=== PATIENT | male | born 1995 | race Caucasian/White ===

== ENCOUNTER 2018-06-25 12:57 | Inpatient (IN) | payer OTHER, MEDICAID ==
[2018-06-25] MEDS: SOD CHLORIDE 0.9% 1,000 ML IV ×2 (15:00→15:47)
[2018-06-25 15:02] LABS: ADD MAN DIFF? NO
[2018-06-25] MEDS: ONDANSETRON 4 MG INJ IV (15:04)
[2018-06-25] MEDS: LORAZEPAM 2 MG INJ IV (15:05)
[2018-06-25 15:14] LABS: ABNORMAL IP MESSAGE 1; BASOPHIL # 0.1 10^3/ul (0.0-0.1); BASOPHILS % 0.2 % (0.0-2.0); HEMATOCRIT 52.9 % (42.0-52.0); LYMPHOCYTES # 1.8 10^3/ul (0.8-2.9); LYMPHOCYTES % 8.9 % (15.0-51.0); MEAN CORPUSCULAR HEMOGLOBIN 30.4 pg (29.0-33.0); MEAN CORPUSCULAR HGB CONC 35.9 g/dl (32.0-37.0); MEAN CORPUSCULAR VOLUME 84.5 fl (82.0-101.0); MEAN PLATELET VOLUME 9.5 fl (7.4-10.4); NEUTROPHIL # 16.2 10^3/ul (1.6-7.5); NEUTROPHILS % 80.4 % (39.0-77.0); PLATELET COUNT 365 10^3/UL (140-415); POSITIVE DIFF @See below; RED BLOOD COUNT 6.26 10^6/ul (4.70-6.10); RED CELL DISTRIBUTION WIDTH 11.9 % (11.5-14.5)
[2018-06-25 15:14] LABS: WHITE BLOOD COUNT 20.2 10^3/ul (4.8-10.8)
[2018-06-25 15:39] LABS: ALANINE AMINOTRANSFERASE 27 IU/L (13-69); ALBUMIN 5.5 g/dl (3.3-4.9); ALBUMIN/GLOBULIN RATIO 1.27; ALKALINE PHOSPHATASE 89 IU/L (42-121); ANION GAP 24 (8-16); ASPARTATE AMINO TRANSFERASE 57 IU/L (15-46); BILIRUBIN,INDIRECT 1.7 mg/dl (0-1.1); BILIRUBIN,TOTAL 1.7 mg/dl (0.2-1.3); BLOOD UREA NITROGEN 25 mg/dl (7-20); CARBON DIOXIDE 32 mmol/L (21-31); CHLORIDE 77 mmol/L (97-110); CREATININE 1.27 mg/dl (0.61-1.24); GLUCOSE 130 mg/dl (70-220); LIPASE 54 U/L (23-300); POTASSIUM 3.5 mmol/L (3.5-5.1); SODIUM 129 mmol/L (135-144); TOTAL PROTEIN 9.8 g/dl (6.1-8.1)
[2018-06-25] MEDS ORDERED: SOD CHLORIDE 0.9% 1,000 ML IV ×2 (18:23→18:33)
[2018-06-25] MEDS ORDERED: ONDANSETRON 4 MG INJ IV ×2 (18:30→19:00)
[2018-06-25] MEDS ORDERED: NACL 0.9% 3 ML SYG IV (18:30)
[2018-06-25] MEDS ORDERED: MAGNESIUM HYDROXIDE 30ML CUP PO (18:30)
[2018-06-25] MEDS ORDERED: LORAZEPAM 2 MG INJ IV ×2 (18:30→19:30)
[2018-06-25] MEDS ORDERED: CHLORDIAZEPOXIDE 25 MG CAP PO (18:30)
[2018-06-25] MEDS ORDERED: DOCUSATE SODIUM 100 MG CAP PO (18:30)
[2018-06-25] MEDS ORDERED: ACETAMINOPHEN 325 MG TAB PO (19:00)
[2018-06-25] MEDS: CHLORDIAZEPOXIDE 25 MG CAP PO (20:56)
[2018-06-25] MEDS: MULTIVITAMINS IV (21:16)
[2018-06-25] MEDS: THIAMINE IV (21:16)
[2018-06-25] MEDS: FOLIC ACID IV (21:16)
[2018-06-25] MEDS: SOD CHLORIDE IV (21:16)
[2018-06-25] MEDS: ZOLPIDEM 5 MG TAB PO (23:58)
[2018-06-26] MEDS: CHLORDIAZEPOXIDE 25 MG CAP PO ×4 (00:46→17:49)
[2018-06-26] MEDS: HYDROCODONE/APAP (10/325) TAB PO ×2 (01:19→16:18)
[2018-06-26] MEDS: DICYCLOMINE 10 MG CAP PO ×3 (02:06→23:08)
[2018-06-26 05:52] LABS: ADD MAN DIFF? NO
[2018-06-26 06:03] LABS: WHITE BLOOD COUNT 12.7 10^3/ul (4.8-10.8)
[2018-06-26 06:03] LABS: ABNORMAL IP MESSAGE 1; BASOPHIL # 0.1 10^3/ul (0.0-0.1); BASOPHILS % 0.5 % (0.0-2.0); EOSINOPHILS # 0.1 10^3/ul (0.0-0.5); EOSINOPHILS % 0.7 % (0.0-7.0); HEMATOCRIT 43.8 % (42.0-52.0); HEMOGLOBIN 15.3 g/dl (14.0-18.0); LYMPHOCYTES % 31.7 % (15.0-51.0); MEAN CORPUSCULAR HEMOGLOBIN 30.8 pg (29.0-33.0); MEAN CORPUSCULAR HGB CONC 34.9 g/dl (32.0-37.0); MEAN CORPUSCULAR VOLUME 88.3 fl (82.0-101.0); MEAN PLATELET VOLUME 9.8 fl (7.4-10.4); MONOCYTE # 1.6 10^3/ul (0.3-0.9); MONOCYTES % 12.7 % (0.0-11.0); NEUTROPHIL # 6.8 10^3/ul (1.6-7.5); NEUTROPHILS % 53.8 % (39.0-77.0); PLATELET COUNT 275 10^3/UL (140-415); POSITIVE DIFF @See below; RED BLOOD COUNT 4.96 10^6/ul (4.70-6.10); RED CELL DISTRIBUTION WIDTH 12.3 % (11.5-14.5)
[2018-06-26] MEDS: PANTOPRAZOLE 40 MG INJ IV (06:27)
[2018-06-26 06:34] LABS: ALANINE AMINOTRANSFERASE 33 IU/L (13-69); ALBUMIN 4.1 g/dl (3.3-4.9); ALBUMIN/GLOBULIN RATIO 1.51; ALKALINE PHOSPHATASE 56 IU/L (42-121); ANION GAP 13 (8-16); ASPARTATE AMINO TRANSFERASE 59 IU/L (15-46); BILIRUBIN,INDIRECT 2.1 mg/dl (0-1.1); BILIRUBIN,TOTAL 2.1 mg/dl (0.2-1.3); BLOOD UREA NITROGEN 16 mg/dl (7-20); CARBON DIOXIDE 34 mmol/L (21-31); CHLORIDE 89 mmol/L (97-110); CREATININE 0.87 mg/dl (0.61-1.24); GLUCOSE 98 mg/dl (70-220); POTASSIUM 3.1 mmol/L (3.5-5.1); SODIUM 133 mmol/L (135-144); TOTAL PROTEIN 6.8 g/dl (6.1-8.1)
[2018-06-26] MEDS: SOD CHLORIDE 0.9% 1,000 ML IV ×2 (09:55→19:00)
[2018-06-26] MEDS: POTASSIUM CHLORIDE (SR) 20 MEQ TAB PO ×2 (09:55→12:47)
[2018-06-26] MEDS: BUSPIRONE 5 MG TAB PO ×2 (13:02→21:13)
[2018-06-26] MEDS: ACETAMINOPHEN 325 MG TAB PO (17:22)
[2018-06-26] MEDS: MULTIVITAMINS IV (19:45)
[2018-06-26] MEDS: GUAIFENESIN/CODEINE 5ML CUP PO (19:45)
[2018-06-26] MEDS: SOD CHLORIDE IV (19:45)
[2018-06-26] MEDS: THIAMINE IV (19:45)
[2018-06-26] MEDS: FOLIC ACID IV (19:45)
[2018-06-27] MEDS: CHLORDIAZEPOXIDE 25 MG CAP PO ×5 (00:10→23:37)
[2018-06-27] MEDS: ZOLPIDEM 5 MG TAB PO (00:10)
[2018-06-27] MEDS: HYDROCODONE/APAP (10/325) TAB PO ×3 (00:11→12:30)
[2018-06-27] MEDS: PANTOPRAZOLE 40 MG INJ IV (05:31)
[2018-06-27] MEDS: SOD CHLORIDE 0.9% 1,000 ML IV (05:35)
[2018-06-27] MEDS: BUSPIRONE 5 MG TAB PO ×2 (08:06→21:51)
[2018-06-27 12:10] LABS: ALANINE AMINOTRANSFERASE 25 IU/L (13-69); ALBUMIN 3.6 g/dl (3.3-4.9); ALBUMIN/GLOBULIN RATIO 1.44; ALKALINE PHOSPHATASE 58 IU/L (42-121); ANION GAP 12 (8-16); ASPARTATE AMINO TRANSFERASE 45 IU/L (15-46); BILIRUBIN,INDIRECT 0.9 mg/dl (0-1.1); BILIRUBIN,TOTAL 0.9 mg/dl (0.2-1.3); BLOOD UREA NITROGEN 14 mg/dl (7-20); CALCIUM 8.7 mg/dl (8.4-10.2); CARBON DIOXIDE 28 mmol/L (21-31); CHLORIDE 99 mmol/L (97-110); CREATININE 0.73 mg/dl (0.61-1.24); GLUCOSE 96 mg/dl (70-220); POTASSIUM 3.6 mmol/L (3.5-5.1); SODIUM 135 mmol/L (135-144); TOTAL PROTEIN 6.1 g/dl (6.1-8.1)
[2018-06-27] MEDS: GUAIFENESIN/CODEINE 5ML CUP PO (12:30)
[2018-06-27] MEDS: POTASSIUM CHLORIDE (SR) 20 MEQ TAB PO (15:26)
[2018-06-27] MEDS: HYDROCODONE/APAP (5/325) TAB PO ×2 (15:32→21:51)
[2018-06-27] MEDS: IOHEXOL 300MG/ML 150 ML BTL (21:56)
[2018-06-27] MEDS: SOD CHLORIDE 0.9% 100 ML (21:56)
[2018-06-27] MEDS: DICYCLOMINE 10 MG CAP PO (22:54)
[2018-06-27] MEDS: THIAMINE IV (23:37)
[2018-06-27] MEDS: SOD CHLORIDE IV (23:37)
[2018-06-27] MEDS: FOLIC ACID IV (23:37)
[2018-06-27] MEDS: MULTIVITAMINS IV (23:37)
[2018-06-28] MEDS: ZOLPIDEM 5 MG TAB PO ×2 (00:55→03:31)
[2018-06-28] MEDS: GUAIFENESIN/CODEINE 5ML CUP PO ×2 (00:55→08:44)
[2018-06-28] MEDS: HYDROCODONE/APAP (10/325) TAB PO ×2 (00:56→13:55)
[2018-06-28 05:55] LABS: ADD MAN DIFF? NO
[2018-06-28 06:08] LABS: BASOPHIL # 0.1 10^3/ul (0.0-0.1); BASOPHILS % 0.7 % (0.0-2.0); EOSINOPHILS # 0.3 10^3/ul (0.0-0.5); HEMATOCRIT 38.9 % (42.0-52.0); HEMOGLOBIN 13.1 g/dl (14.0-18.0); LYMPHOCYTES # 3.8 10^3/ul (0.8-2.9); LYMPHOCYTES % 45.1 % (15.0-51.0); MEAN CORPUSCULAR HEMOGLOBIN 30.6 pg (29.0-33.0); MEAN CORPUSCULAR HGB CONC 33.7 g/dl (32.0-37.0); MEAN CORPUSCULAR VOLUME 90.9 fl (82.0-101.0); MEAN PLATELET VOLUME 10.1 fl (7.4-10.4); MONOCYTE # 0.9 10^3/ul (0.3-0.9); MONOCYTES % 10.5 % (0.0-11.0); NEUTROPHIL # 3.4 10^3/ul (1.6-7.5); NEUTROPHILS % 40.3 % (39.0-77.0); PLATELET COUNT 229 10^3/UL (140-415); RED BLOOD COUNT 4.28 10^6/ul (4.70-6.10); RED CELL DISTRIBUTION WIDTH 12.2 % (11.5-14.5)
[2018-06-28 06:08] LABS: WHITE BLOOD COUNT 8.3 10^3/ul (4.8-10.8)
[2018-06-28] MEDS: PANTOPRAZOLE 40 MG INJ IV (06:10)
[2018-06-28] MEDS: CHLORDIAZEPOXIDE 25 MG CAP PO ×2 (06:10→11:16)
[2018-06-28 06:36] LABS: ALANINE AMINOTRANSFERASE 35 IU/L (13-69); ALBUMIN 3.7 g/dl (3.3-4.9); ALBUMIN/GLOBULIN RATIO 1.48; ALKALINE PHOSPHATASE 54 IU/L (42-121); ANION GAP 11 (8-16); ASPARTATE AMINO TRANSFERASE 40 IU/L (15-46); BILIRUBIN,INDIRECT 0.6 mg/dl (0-1.1); BILIRUBIN,TOTAL 0.6 mg/dl (0.2-1.3); BLOOD UREA NITROGEN 9 mg/dl (7-20); CALCIUM 9.1 mg/dl (8.4-10.2); CARBON DIOXIDE 29 mmol/L (21-31); CHLORIDE 100 mmol/L (97-110); CREATININE 0.62 mg/dl (0.61-1.24); GLUCOSE 88 mg/dl (70-220); POTASSIUM 3.5 mmol/L (3.5-5.1); SODIUM 136 mmol/L (135-144); TOTAL PROTEIN 6.2 g/dl (6.1-8.1)
[2018-06-28] MEDS: BUSPIRONE 5 MG TAB PO (08:38)
[2018-06-28] MEDS: POTASSIUM CHLORIDE (SR) 20 MEQ TAB PO (10:04)
[2018-06-28] MEDS ORDERED: CALCIUM CARBONATE 500 MG CHEW TAB PO (11:00)
[2018-06-28] MEDS: BACLOFEN 10 MG TAB PO ×2 (11:16→16:29)
== END 2018-06-28 19:37 | disposition home or self-care (01) | DRG 897 ==
LOC: E/R 12:57 → 6WM 18:34
DX: F10.239 Alcohol dependence with withdrawal, unspecified (principal); G40.89 Other seizures; E87.1 Hypo-osmolality and hyponatremia; N17.9 Acute kidney failure, unspecified; E86.0 Dehydration; K70.10 Alcoholic hepatitis without ascites; F41.9 Anxiety disorder, unspecified; F41.0 Panic disorder [episodic paroxysmal anxiety]; F10.288 Alcohol dependence with other alcohol-induced disorder; R06.6 Hiccough
CPT/HCPCS: 36415; 71045; 74177; 80053; 83690; 83735; 85025; 93005; 96374; 96375; 97161; 99285-25